=== PATIENT | female | born 1985 ===

== ENCOUNTER 2017-02-20 22:45 | Inpatient (IN) | payer BC ==
[~2017-02-20] VITALS: Ht 154.9 cm; Wt 65.5 kg
[2017-02-20 22:53] VITALS: BP 131/68; PULSE 62; TEMP 98.2
[2017-02-20] MEDS ORDERED: PRENATAL1 TA7 PO (23:04)
[2017-02-20 23:15] VITALS: BP 122/77; PULSE 59
[2017-02-20 23:47] LABS: BASO # 0.1 (0.0-0.2); BASO % 0.4 % (0.0-2.0); EOS # 0.2 (0.0-0.7); EOS % 1.5 % (0-4.0); GRAN # 7.8 (1.4-6.5); HEMATOCRIT 34.9 % (37.0-47.0); LYMPH # 3.1 (1.2-3.4); MEAN CELL VOLUME 83 fl (80.0-100.0); MEAN CORPUSCULAR HEMOGLOBIN 29 pg (27.0-31.0); MEAN CORPUSCULAR HGB CONC 34 g/dl (33.0-37.0); MEAN PLATELET VOLUME 11.3 fl (7.4-10.4); MONO # 0.7 (0.1-0.6); MONO % 5.7 % (1.7-9.3); PLATELET COUNT 166 K/mm3 (130-400); REDCELL DISTRIBUTION WIDTH-CV 13.1 % (11.5-14.5); WHITE BLOOD COUNT 11.8 K/mm3 (4.8-10.8)
[2017-02-21] VITALS (10 sets, daily range): BP systolic 100–117; BP diastolic 57–66; PULSE 61–86; TEMP 97.9–98.4
[2017-02-22 09:11] VITALS: BP 95/56; PULSE 67
== END 2017-02-22 15:40 | disposition home or self-care (01) | DRG 775 ==
LOC: LDRO 22:45 → LDR 23:07 → OB 23:07
PROVIDERS: Obstetrics & Gynecology
PROC: 10E0XZZ Delivery of Products of Conception, External Approach (ICD-10-PCS; principal; 2017-02-21)
PROC: 0HQ9XZZ Repair Perineum Skin, External Approach (ICD-10-PCS; 2017-02-21)
DX: O70.0 First degree perineal laceration during delivery (principal); O36.0130 Maternal care for anti-D [Rh] antibodies, third trimester, not applicable or unspecified; O75.89 Other specified complications of labor and delivery; Z3A.39 39 weeks gestation of pregnancy; Z37.0 Single live birth
CPT/HCPCS: J2590; J2791; J7120

== ENCOUNTER 2018-03-08 10:18 | Outpatient (CLI) | payer BC ==
[~2018-03-08] VITALS: Ht 154.9 cm; Wt 52.3 kg
[~2018-03-08 10:18] MED LIST: PRENATAL1 TA7 PO
== END 2018-03-08 10:50 | disposition home or self-care (01) ==
LOC: LDRO 10:18
DX: O36.0910 Maternal care for other rhesus isoimmunization, first trimester, not applicable or unspecified (principal); Z3A.01 Less than 8 weeks gestation of pregnancy
CPT/HCPCS: J2791

== ENCOUNTER 2020-02-23 06:09 | Inpatient (IN) | payer BC ==
[~2020-02-23] VITALS: Ht 154.9 cm; Wt 63.2 kg
[2020-02-23] VITALS (19 sets, daily range): BP systolic 86–128; BP diastolic 44–62; PULSE 47–63; TEMP 97–98.7
--- NOTE | 2020-02-23 06:15 | NUR ---
PATIENT TO LR 3 FOR CHECK. PATIENT COMPLAINS OF LEAKING OF FLUID AND CONTRACTIONS. PATIENT CHANGED INTO GOWN, ON EFM, VITALS OBTAINED, SVE SHOWS COMPLETE, BREECH POSITION. MECHONIUM NOTED ON BED AND PERINEUM. CHELY CALLED DR VU AND DR MCDERMOTT AT THIS TIME. PATIENTS IV STARTED , CONSENTS SIGNED, BELLY PREP, WILY HEIN CALLED. ANGEL LUIS AT BEDSIDE. 0647 DR MCDERMOTT AT BEDSIDE. SVE PREFORMED. DR MCDERMOTT CALLED C/S AT 0650. PATIENT OFF EFM AND WALKED TO OR AT 0659
[2020-02-23] MEDS ORDERED: CEPHALEXIN125 MG/5 M PO (06:41)
--- NOTE | 2020-02-23 06:59 | NUR ---
CONTRACTIONS NOTED EVERY2-4 MINS 60-120 SEC
[2020-02-23 07:00] LABS: BASO # 0.1 (0.0-0.2); BASO % 0.5 % (0.0-2.0); EOS # 0.1 (0.0-0.7); EOS % 0.6 % (0-4.0); GRAN % 70.1 % (42.2-75.2); HEMOGLOBIN 11.9 g/dl (12.5-16.0); LYMPH # 2.3 (1.2-3.4); LYMPH % 23.4 % (20.0-51.0); MEAN CELL VOLUME 80 fl (80.0-100.0); MEAN CORPUSCULAR HEMOGLOBIN 26 pg (27.0-31.0); MEAN CORPUSCULAR HGB CONC 33 g/dl (33.0-37.0); MEAN PLATELET VOLUME 10.9 fl (7.4-10.4); MONO # 0.5 (0.1-0.6); MONO % 4.9 % (1.7-9.3); PLATELET COUNT 193 K/mm3 (130-400); RED BLOOD COUNT 4.57 M/mm3 (4.10-5.30); REDCELL DISTRIBUTION WIDTH-CV 14.5 % (11.5-14.5)
[2020-02-23 07:03] LABS: HEMATOCRIT 36.4 % (37.0-47.0)
[2020-02-24 07:30] VITALS: BP 98/53; PULSE 57; TEMP 97.6
--- NOTE | 2020-02-24 12:07 | NUR ---
Initial visit; Patient thanked [employer] for looking in on her and her new son and offering congratulations and God's blessings to their family.
[2020-02-24 17:04] VITALS: BP 103/53; PULSE 57; TEMP 97.6
[2020-02-24 19:55] VITALS: BP 111/63; PULSE 65; TEMP 98
[2020-02-25 07:17] VITALS: BP 104/48; PULSE 66; TEMP 97.6
[2020-02-25] MEDS ORDERED: IBU600 MG PO (09:30)
[2020-02-25] MEDS ORDERED: PERCOCET 325 MG1 TA2 PO (09:30)
[2020-02-25 16:38] VITALS: BP 116/56; PULSE 56; TEMP 98
[2020-02-25 22:25] VITALS: BP 111/67; PULSE 66; TEMP 98.1
[2020-02-26 07:30] VITALS: BP 104/50; PULSE 59; TEMP 97.5
== END 2020-02-26 10:30 | disposition home or self-care (01) | DRG 788 ==
LOC: LDRO 06:09 → LDR 06:45 → OB 08:35
PROVIDERS: ADMIT Obstetrics & Gynecology
PROC: 10D00Z1 Extraction of Products of Conception, Low, Open Approach (ICD-10-PCS; principal; 2020-02-23)
DX: O32.1XX0 Maternal care for breech presentation, not applicable or unspecified (principal); O48.0 Post-term pregnancy; O77.0 Labor and delivery complicated by meconium in amniotic fluid; Z37.0 Single live birth; O99.89 Other specified diseases and conditions complicating pregnancy, childbirth and the puerperium; N87.9 Dysplasia of cervix uteri, unspecified; Z3A.40 40 weeks gestation of pregnancy; Z88.0 Allergy status to penicillin
CPT/HCPCS: J0690; J1885; J2370; J2405; J2590; J2791; J3010; J7120